=== PATIENT | female | born 1930 | race Caucasian/White ===

== ENCOUNTER 2016-06-18 01:17 | Inpatient (IN) | payer MEDICARE, OTHER ==
[~2016-06-18] VITALS: Ht 160 cm; Wt 75.8 kg
[~2016-06-18 01:17] MED LIST: ALBU18HF INH; BALS750C14 PO; CARV6.2512 PO; CARV6.252 PO; DIGO125T PO; ENAL5TAB PO; ERGO500017 PO; FURO-93 PO; FURO20TA3 PO; GLIP5TAB10 PO; HYDR-3138 PO; HYDR-3241 PO; LISI-170 PO; METF500T PO; METF500T4 PO; POLY17PO5 PO; SPIR25TA3 PO; TRAZ50TA18 PO; [UNRECOGNIZED DRUG - CODE] OP
[2016-06-18] MEDS ORDERED: SODIUM CHLORIDE 0.9% 1,000 ML IV ONE (01:26)
[2016-06-18] MEDS ORDERED: SODIUM CHLORIDE FLUSH 10ML SYR IVF ONE (01:30)
[2016-06-18] MEDS ORDERED: ALBUTEROL/IPRATROPIUM 2.5MG/0.5MG, 3 ML ONE (01:47)
[2016-06-18] MEDS ORDERED: methylPREDNISolone SOD SUCC 125 MG/2 ML IVP ONE (02:00)
[2016-06-18] MEDS ORDERED: methylPREDNISolone SOD SUCC 125 MG/2 ML ONE (02:00)
[2016-06-18] MEDS ORDERED: ALBUTEROL/IPRATROPIUM 2.5MG/0.5MG, 3 ML NPPB ONE (02:00)
[2016-06-18 02:07] LABS: HEMOGLOBIN 13.8 g/dL (11.7-16.4)
[2016-06-18 02:21] LABS: BLOOD UREA NITROGEN 17 mg/dL (7-18)
[2016-06-18 02:26] LABS: ASPARTATE AMINO TRANSFERASE 17 U/L (15-37)
[2016-06-18 02:27] LABS: IS PT STATUS REG ER OR PRE ER? YES
[2016-06-18] MEDS ORDERED: NITROGLYCERIN OINT 2%, 1GM TP ONE ×2 (02:47→03:00)
[2016-06-18] MEDS ORDERED: FUROSEMIDE 40 MG/4 ML ONE (02:47)
[2016-06-18] MEDS ORDERED: ASPIRIN 81 MG TABLET CHEW ONE (02:47)
[2016-06-18] MEDS ORDERED: FUROSEMIDE 40 MG/4 ML IVPush ONE (03:00)
[2016-06-18] MEDS ORDERED: ASPIRIN 81 MG TABLET CHEW PO ONE (03:00)
[2016-06-18] MEDS ORDERED: MORPHINE SULFATE 4 MG/ML, 1ML IVPush PRN (03:00)
[2016-06-18 04:27] VITALS: BP 133/68
[2016-06-18] MEDS ORDERED: ONDANSETRON ODT 4 MG PO PRN (05:00)
[2016-06-18] MEDS ORDERED: LABETALOL 5MG/ML, 20ML IV PRN (05:00)
[2016-06-18] MEDS ORDERED: BISACODYL 10 MG SUPP PR PRN (05:00)
[2016-06-18] MEDS ORDERED: ACETAMINOPHEN 325 MG TABLET PO PRN (05:00)
[2016-06-18] MEDS ORDERED: POLYETHYLENE GLYCOL 17 GM PACKET PO PRN (05:00)
[2016-06-18] MEDS ORDERED: DOCUSATE 100 MG CAPSULE PO PRN (05:00)
[2016-06-18] MEDS ORDERED: TRAZODONE 50MG TABLET PO PRN (05:00)
[2016-06-18 05:39] LABS: ABG COLLECTION SITE LEFT BRACHIAL
[2016-06-18 06:04] LABS: IS PT STATUS REG ER OR PRE ER? NO
[2016-06-18] MEDS: methylPREDNISolone SOD SUCC 125 MG/2 ML IVPush SCH ×4 (06:13→22:18)
[2016-06-18] MEDS: HEPARIN 5,000 UNITS/ML, 1ML SQ SCH ×3 (06:13→22:17)
[2016-06-18 06:53] VITALS: BP 139/79
[2016-06-18] MEDS: INSULIN REGULAR 100 UNITS/ML, 3ML VIAL SQ-INSULIN SCH ×4 (07:00→21:00)
[2016-06-18] MEDS: ENALAPRIL 5MG TABLET PO SCH ×2 (08:00→22:16)
[2016-06-18] MEDS: DIGOXIN 0.125 MG TABLET PO SCH (08:00)
[2016-06-18] MEDS: SPIRONOLACTONE 25 MG TABLET PO SCH (08:00)
[2016-06-18] MEDS: CARVEDILOL 6.25 MG TABLET PO SCH ×2 (08:00→22:16)
[2016-06-18] MEDS ORDERED: BALSALAZIDE DISODIUM PO SCH (09:00)
[2016-06-18] MEDS: FUROSEMIDE 40 MG/4 ML IV SCH ×2 (10:58→16:44)
[2016-06-18] MEDS: AZITHROMYCIN 500 MG TABLET PO SCH (10:58)
[2016-06-18] MEDS ORDERED: MAGNESIUM SULFATE PMX 2GM/50ML 50 ML IV ONE (11:00)
[2016-06-18 13:38] VITALS: BP 103/52
[2016-06-18 14:35] LABS: IS PT STATUS REG ER OR PRE ER? NO
[2016-06-18 19:32] VITALS: BP 113/64
[2016-06-19 02:05] VITALS: BP 120/52
[2016-06-19] MEDS: HEPARIN 5,000 UNITS/ML, 1ML SQ SCH ×3 (05:00→22:12)
[2016-06-19] MEDS: methylPREDNISolone SOD SUCC 125 MG/2 ML IVPush SCH ×4 (05:45→22:13)
[2016-06-19 06:44] LABS: BLOOD UREA NITROGEN 30 mg/dL (7-18)
[2016-06-19 06:57] VITALS: BP 116/63
[2016-06-19] MEDS: FUROSEMIDE 40 MG/4 ML IV SCH (07:49)
[2016-06-19] MEDS: INSULIN REGULAR 100 UNITS/ML, 3ML VIAL SQ-INSULIN SCH ×4 (08:03→21:00)
[2016-06-19] MEDS: SPIRONOLACTONE 25 MG TABLET PO SCH (08:16)
[2016-06-19] MEDS: DIGOXIN 0.125 MG TABLET PO SCH (08:16)
[2016-06-19] MEDS: ENALAPRIL 5MG TABLET PO SCH ×2 (08:16→22:12)
[2016-06-19] MEDS: CARVEDILOL 6.25 MG TABLET PO SCH ×2 (08:17→22:12)
[2016-06-19] MEDS: AZITHROMYCIN 500 MG TABLET PO SCH (08:17)
[2016-06-19 13:38] VITALS: BP 100/48
[2016-06-19 19:58] VITALS: BP 107/54
[2016-06-19] MEDS ORDERED: FUROSEMIDE 40 MG TABLET PO SCH (21:00)
[2016-06-20 01:52] VITALS: BP 112/58
[2016-06-20] MEDS: HEPARIN 5,000 UNITS/ML, 1ML SQ SCH ×2 (04:55→12:51)
[2016-06-20] MEDS: methylPREDNISolone SOD SUCC 125 MG/2 ML IVPush SCH ×2 (04:55→12:48)
[2016-06-20 05:58] LABS: BLOOD UREA NITROGEN 42 mg/dL (7-18)
[2016-06-20 07:29] VITALS: BP 143/72
[2016-06-20] MEDS: ENALAPRIL 5MG TABLET PO SCH (08:49)
[2016-06-20] MEDS: INSULIN REGULAR 100 UNITS/ML, 3ML VIAL SQ-INSULIN SCH ×2 (08:49→12:48)
[2016-06-20] MEDS: AZITHROMYCIN 500 MG TABLET PO SCH (08:49)
[2016-06-20] MEDS: SPIRONOLACTONE 25 MG TABLET PO SCH (08:50)
[2016-06-20] MEDS: DIGOXIN 0.125 MG TABLET PO SCH (08:50)
[2016-06-20] MEDS: CARVEDILOL 6.25 MG TABLET PO SCH (08:50)
[2016-06-20 13:22] VITALS: BP 135/90
== END 2016-06-20 16:11 | disposition left against medical advice (07) | DRG 291 ==
LOC: ED 02:53 → EDIP 03:09 → 5SO 03:20
PROVIDERS: ADMIT Internal Medicine; ATTEND Internal Medicine
DX: I13.0 Hypertensive heart and chronic kidney disease with heart failure and stage 1 through stage 4 chronic kidney disease, or unspecified chronic kidney disease (principal); I50.43 Acute on chronic combined systolic (congestive) and diastolic (congestive) heart failure; J96.01 Acute respiratory failure with hypoxia; J18.9 Pneumonia, unspecified organism; J44.1 Chronic obstructive pulmonary disease with (acute) exacerbation; J06.9 Acute upper respiratory infection, unspecified; E11.22 Type 2 diabetes mellitus with diabetic chronic kidney disease; K52.9 Noninfective gastroenteritis and colitis, unspecified; K76.1 Chronic passive congestion of liver; N18.9 Chronic kidney disease, unspecified; E11.65 Type 2 diabetes mellitus with hyperglycemia; Z66 Do not resuscitate; Z79.82 Long term (current) use of aspirin; Z80.0 Family history of malignant neoplasm of digestive organs; Z87.891 Personal history of nicotine dependence; Z95.810 Presence of automatic (implantable) cardiac defibrillator; Z88.0 Allergy status to penicillin; Z88.2 Allergy status to sulfonamides; Z88.8 Allergy status to other drugs, medicaments and biological substances; Z91.19 Patient's noncompliance with other medical treatment and regimen
CPT/HCPCS: 36415; 36600; 71010; 80048; 80053; 80162; 82247; 82803; 82962; 83036; 83735; 83880; 84145; 84439; 84443; 84484; 85025; 85610; 85730; 93005; 93306; 94640; 96374; 96375; J1644; J1815; J1940; J7620; J2930; J3475; J7030

== ENCOUNTER 2016-07-07 02:32 | Inpatient (IN) | payer MEDICARE, OTHER ==
[~2016-07-07] VITALS: Ht 160 cm; Wt 68.1 kg
[2016-07-07 04:43] LABS: BLOOD UREA NITROGEN 18 mg/dL (7-18)
[2016-07-07 05:05] LABS: IS PT STATUS REG ER OR PRE ER? YES
[2016-07-07] MEDS ORDERED: FUROSEMIDE 40 MG/4 ML ONE (05:15)
[2016-07-07] MEDS ORDERED: ONDANSETRON 2MG/ML, 2ML IVPush PRN (05:30)
[2016-07-07] MEDS ORDERED: FUROSEMIDE 40 MG/4 ML IV ONE (05:30)
[2016-07-07] MEDS ORDERED: MORPHINE SULFATE 4 MG/ML, 1ML IVPush PRN ×2 (05:30→08:30)
[2016-07-07] MEDS ORDERED: ASPIRIN 81 MG TABLET CHEW PO ONE (05:30)
[2016-07-07] MEDS ORDERED: CARVEDILOL 3.125 MG TABLET PO SCH (08:00)
[2016-07-07] MEDS ORDERED: TEMAZEPAM 15 MG CAPSULE PO PRN (08:30)
[2016-07-07] MEDS ORDERED: POLYETHYLENE GLYCOL 17 GM PACKET PO PRN (08:30)
[2016-07-07] MEDS ORDERED: ACETAMINOPHEN 325 MG TABLET PO PRN (08:30)
[2016-07-07] MEDS ORDERED: ONDANSETRON 2MG/ML, 2ML IVP PRN (08:30)
[2016-07-07] MEDS ORDERED: HYDROcodone/APAP 5/325 TABLET PO PRN (08:30)
[2016-07-07] MEDS ORDERED: NITROGLYCERIN 0.4 MG BOTTLE (25 TABS) SL PRN (08:30)
[2016-07-07] MEDS ORDERED: HEPARIN 5,000 UNITS/ML, 1ML ONE (08:36)
[2016-07-07] MEDS ORDERED: POTASSIUM CHLORIDE 20 MEQ TAB.ER.PRT ONE (08:36)
[2016-07-07] MEDS ORDERED: ENALAPRIL 5MG TABLET PO SCH (09:00)
[2016-07-07] MEDS: POTASSIUM CHLORIDE 20 MEQ TAB.ER.PRT PO SCH (09:34)
[2016-07-07] MEDS: DIGOXIN 0.125 MG TABLET PO SCH (09:37)
[2016-07-07] MEDS: SPIRONOLACTONE 25 MG TABLET PO SCH (09:37)
[2016-07-07] MEDS: HEPARIN 5,000 UNITS/ML, 1ML SQ SCH ×2 (09:37→18:20)
[2016-07-07] MEDS: FUROSEMIDE 20 MG/2 ML IV SCH ×2 (09:51→18:20)
[2016-07-07] MEDS ORDERED: BALS750C14 PO (10:35)
[2016-07-07] MEDS ORDERED: ZOLP5TAB6 PO (10:35)
[2016-07-07] MEDS ORDERED: NAPH15DR4 OP (10:35)
[2016-07-07] MEDS ORDERED: METF500T4 PO (10:35)
[2016-07-07] MEDS ORDERED: INSULIN SINGLE DOSE, ER SQ-INSULIN ONE (12:30)
[2016-07-07] MEDS: INSULIN REGULAR 100 UNITS/ML, 3ML VIAL SQ-INSULIN SCH ×3 (12:32→20:52)
[2016-07-07 13:23] LABS: PATH.CAST-FLAG NOT PRESENT; SPERM-FLAG NOT PRESENT; SRC-FLAG NOT PRESENT; XTAL-FLAG NOT PRESENT; YLC-FLAG NOT PRESENT
[2016-07-07 14:00] VITALS: BP 106/69
[2016-07-07] MEDS: CARVEDILOL 3.125 MG TABLET PO SCH (18:20)
[2016-07-07 19:01] VITALS: BP 116/76
[2016-07-07 19:53] LABS: IS PT STATUS REG ER OR PRE ER? NO
[2016-07-07] MEDS: ENALAPRIL 5MG TABLET PO SCH (20:48)
[2016-07-08 00:51] VITALS: BP 119/61
[2016-07-08] MEDS: HEPARIN 5,000 UNITS/ML, 1ML SQ SCH ×3 (00:51→17:31)
[2016-07-08 06:02] LABS: ASPARTATE AMINO TRANSFERASE 17 U/L (15-37); BLOOD UREA NITROGEN 26 mg/dL (7-18)
[2016-07-08] MEDS: CARVEDILOL 3.125 MG TABLET PO SCH ×2 (06:13→17:31)
[2016-07-08 06:16] LABS: IS PT STATUS REG ER OR PRE ER? NO
[2016-07-08] MEDS: INSULIN REGULAR 100 UNITS/ML, 3ML VIAL SQ-INSULIN SCH ×4 (07:00→21:00)
[2016-07-08 07:58] VITALS: BP 108/65
[2016-07-08] MEDS: POTASSIUM CHLORIDE 20 MEQ TAB.ER.PRT PO SCH (08:55)
[2016-07-08] MEDS: DIGOXIN 0.125 MG TABLET PO SCH (08:55)
[2016-07-08] MEDS: ENALAPRIL 5MG TABLET PO SCH (08:55)
[2016-07-08] MEDS: FUROSEMIDE 20 MG/2 ML IV SCH ×2 (08:55→17:30)
[2016-07-08] MEDS: SPIRONOLACTONE 25 MG TABLET PO SCH (08:56)
[2016-07-08 12:12] VITALS: BP 116/60
[2016-07-08 18:48] VITALS: BP 111/67
[2016-07-09] MEDS: HEPARIN 5,000 UNITS/ML, 1ML SQ SCH ×2 (00:30→08:30)
[2016-07-09 01:07] VITALS: BP 133/65
[2016-07-09] MEDS: FUROSEMIDE 20 MG/2 ML IV SCH (08:59)
[2016-07-09] MEDS: SPIRONOLACTONE 25 MG TABLET PO SCH (08:59)
[2016-07-09] MEDS: CARVEDILOL 3.125 MG TABLET PO SCH (09:00)
[2016-07-09] MEDS: DIGOXIN 0.125 MG TABLET PO SCH (09:00)
[2016-07-09] MEDS: POTASSIUM CHLORIDE 20 MEQ TAB.ER.PRT PO SCH (09:05)
[2016-07-09] MEDS: INSULIN REGULAR 100 UNITS/ML, 3ML VIAL SQ-INSULIN SCH (09:06)
[2016-07-09 09:12] VITALS: BP 135/71
== END 2016-07-09 13:38 | disposition left against medical advice (07) | DRG 280 ==
LOC: ED 03:12 → EDIP 05:20 → 5SO 13:51
PROVIDERS: ADMIT Internal Medicine
PROC: 0T9B70Z Drainage of Bladder with Drainage Device, Via Natural or Artificial Opening (ICD-10-PCS; principal; 2016-07-07)
DX: I13.0 Hypertensive heart and chronic kidney disease with heart failure and stage 1 through stage 4 chronic kidney disease, or unspecified chronic kidney disease (principal); I50.43 Acute on chronic combined systolic (congestive) and diastolic (congestive) heart failure; I21.4 Non-ST elevation (NSTEMI) myocardial infarction; G93.40 Encephalopathy, unspecified; N17.9 Acute kidney failure, unspecified; N39.0 Urinary tract infection, site not specified; E11.22 Type 2 diabetes mellitus with diabetic chronic kidney disease; I34.0 Nonrheumatic mitral (valve) insufficiency; I45.9 Conduction disorder, unspecified; J44.9 Chronic obstructive pulmonary disease, unspecified; N18.9 Chronic kidney disease, unspecified; I25.2 Old myocardial infarction; Z87.891 Personal history of nicotine dependence; Z91.14 Patient's other noncompliance with medication regimen; Z95.810 Presence of automatic (implantable) cardiac defibrillator; Z99.81 Dependence on supplemental oxygen; Z88.6 Allergy status to analgesic agent; Z88.0 Allergy status to penicillin; Z88.2 Allergy status to sulfonamides; J02.9 Acute pharyngitis, unspecified
CPT/HCPCS: 36415; 71010; 80048; 80053; 80061; 80162; 81001; 82040; 82962; 83735; 83880; 84100; 84484; 85025; 87086; 93005; 96374; J1644; J1815; J1940

== ENCOUNTER 2016-10-11 14:49 | Emergency (ER) | payer MEDICARE ==
[~2016-10-11 14:49] MED LIST changes: +NAPH15DR4 OP; +ZOLP5TAB6 PO
== END 2016-10-11 16:01 | disposition left against medical advice (07) ==
LOC: ED 15:55
DX: M79.606 Pain in leg, unspecified (principal)
CPT/HCPCS: 99283